=== PATIENT | male | born 1965 | race Caucasian/White ===

== ENCOUNTER 2020-05-08 08:00 | Day surgery (SDC) | payer OTHER ==
[2020-05-08] VITALS (10 sets, daily range): BP systolic 106–145; BP diastolic 67–86; PULSE 61–78
[~2020-05-08] VITALS: Ht 165.1 cm; Wt 118.4 kg
[2020-05-08] MEDS ORDERED: PRIL40 PO (09:13)
[2020-05-08] MEDS ORDERED: MOBIC15 MG PO (09:13)
[2020-05-08] MEDS ORDERED: COZAAR100 MG PO (09:14)
[2020-05-08] MEDS ORDERED: DESYREL 100MG100 MG PO (09:14)
[2020-05-08] MEDS ORDERED: PERIACTIN 4MG TA4 MG PO (09:15)
[2020-05-08] MEDS ORDERED: PROAIR HFA0.09 MG/AC IH (09:16)
[2020-05-08] MEDS ORDERED: [UNRECOGNIZED DRUG - OTHER] TP (09:16)
[2020-05-08 09:21] LABS: HEMATOCRIT 39.2 % (42.0-52.0); HEMOGLOBIN 13.1 g/dl (13.5-18.0); MEAN CELL VOLUME 87 fl (80.0-100.0); MEAN CORPUSCULAR HEMOGLOBIN 29 pg (27.0-31.0); MEAN CORPUSCULAR HGB CONC 33 g/dl (33.0-37.0); MEAN PLATELET VOLUME 9.5 fl (7.4-10.4); PLATELET COUNT 194 K/mm3 (130-400); REDCELL DISTRIBUTION WIDTH-CV 14.3 % (11.5-14.5)
[2020-05-08 09:32] LABS: PROTHROMBIN TIME 10.9 SECONDS (9.7-12.8)
[2020-05-08 09:40] LABS: CREATININE, serum 1.01 (0.66-1.25)
--- NOTE | 2020-05-08 10:04 | NUR ---
SEE MERGE DOCUMENTATION FOR MEDICATION ADMINISTRATION TIMES AND INTRA/POST PROCEDURE SEDATION ASSESSMENTS. RIGHT HAND BARBEAU TEST POSITIVE.
--- NOTE | 2020-05-08 10:50 | NUR ---
PT back from [employer], report from [place] MANUEL. pt is awake and alert, TR band to rt wrist, cms intact distal. telemetry monitoring in place, sr on monitor. pt denies needs, lunch ordered, call light in reach. wctm.
--- NOTE | 2020-05-08 14:54 | NUR ---
PT is ready for discharge at this time. TR band has been deflated, site is dressed with bandaid, 2x2 and coban. CMS remains intact distal. I reviewed dc and fu instructions with pt, pt verbalizes understanding. He has done well during recovery, was able to eat lunch, and now has been ambulatory in room and to br and back with steady gait. iv is dc'd with cath intact, dressing applied. pt is dressed and ready to go.
[2020-05-08] MEDS ORDERED: ASPIRIN 81M81 MG/TA2 PO (14:58)
== END 2020-05-08 16:27 | disposition home or self-care (01) ==
LOC: COL.CAR
PROVIDERS: Internal Medicine Cardiovascular Disease
DX: I20.0 Unstable angina (principal); R94.39 Abnormal result of other cardiovascular function study; I10 Essential (primary) hypertension; R61 Generalized hyperhidrosis; Z91.030 Bee allergy status; Z20.828 Contact with and (suspected) exposure to other viral communicable diseases
CPT/HCPCS: J1644; J2250; J3010; Q9967

== ENCOUNTER 2021-02-13 22:03 | Emergency (ER) | payer OTHER ==
[~2021-02-13] VITALS: Ht 165.1 cm; Wt 104.5 kg
[~2021-02-13 22:03] MED LIST: ASPIRIN 81M81 MG/TA2 PO; COZAAR100 MG PO; DESYREL 100MG100 MG PO; MOBIC15 MG PO; PERIACTIN 4MG TA4 MG PO; PRIL40 PO; PROAIR HFA0.09 MG/AC IH; [UNRECOGNIZED DRUG - OTHER] TP
[2021-02-13 22:08] VITALS: BP 172/97; PULSE 80; TEMP 97.6
[2021-02-13] MEDS ORDERED: BACTROBAN22 TOP (22:37)
== END 2021-02-13 22:49 | disposition home or self-care (01) ==
LOC: COL.ER 22:03
DX: T23.442A Corrosion of unspecified degree of multiple left fingers (nail), including thumb, initial encounter (principal); T23.441A Corrosion of unspecified degree of multiple right fingers (nail), including thumb, initial encounter; I10 Essential (primary) hypertension; K21.9 Gastro-esophageal reflux disease without esophagitis; Z87.19 Personal history of other diseases of the digestive system; Z87.891 Personal history of nicotine dependence; Z79.899 Other long term (current) drug therapy